=== PATIENT | male | born 1985 | race Caucasian/White ===

== ENCOUNTER 2017-01-03 19:43 | Emergency (ER) | payer MEDICAID ==
[2017-01-03 20:00] VITALS: O2SAT 95
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
[2017-01-03] MEDS ORDERED: NS 1,000 ML IV ONE (20:03)
[2017-01-03 20:15] LABS: % IMMATURE GRANULYOCYTES 0.4 % (0.0-1.1); ABSOLUTE IMMATURE GRANULOCYTES 0.03 10^3/uL (0.00-0.10); ADD DIFF? NO; ADD MORPH? NO; ADD SCAN? NO; ATYPICAL LYMPHOCYTE FLAG 50 (0-99); FRAGMENT RBC FLAG 0 (0-99); HEMATOCRIT 43.6 % (40.0-51.0); HEMOGLOBIN 14.7 g/dL (13.7-17.5); LEFT SHIFT FLG 0 (0-99); LIPEMIA HEMOLYSIS FLAG 80 (0-99); MEAN CELL HEMOGLOBIN 33.1 pg (27.9-34.1); MEAN CELL HEMOGLOBIN CONCENTR. 33.7 g/dL (32.4-36.7); MEAN CELL VOLUME 98.2 fL (81.5-99.8); MEAN PLATELET VOLUME 9.3 fL (8.7-11.7); PLATELET CLUMPS FLAG 40 (0-99); PLATELET COUNT 284 10^3/uL (150-400); RED BLOOD CELL COUNT 4.44 10^6/uL (4.40-6.38); RED CELL DISTRIBUTION WIDTH 13.3 % (11.5-15.2)
--- NOTE | 2017-01-03 20:30 | CT ---
Noncontrast Head CT Indication: Seizures.. Technique: Standard noncontrast axial CT images of the head were performed. Dose reduction techniq ues were utilized. Comparison Study: December 16, 2012. Findings: No intracranial hemorrhage, mass effect, swelling, or extraaxial fluid collection. The ve ntricles are normal caliber and midline. The bones appear unremarkable. The paranasal sinuses are clear. Impression: Normal noncontrast CT of the brain. Results called to Dr. Patterson at the time of the interpretation.
[2017-01-03 20:38] LABS: ALANINE AMINOTRANSFERASE 53 IU/L (21-72); ALBUMIN 4.3 g/dL (3.5-5.0); ALKALINE PHOSPHATASE 145 IU/L (38-126); ANION GAP 18 mEq/L (8-16); ASPARTATE AMINOTRANSFERASE 86 IU/L (17-59); BILIRUBIN,TOTAL 0.5 mg/dL (0.1-1.4); BILIRUBIN-CONJUGATED 0.5 mg/dL (0.0-0.5); CARBON DIOXIDE 18 mEq/l (22-31); CHLORIDE 109 mEq/L (97-110); CREATININE 0.7 mg/dL (0.7-1.3); GLOMERULAR FILTRATION RATE > 60; GLUCOSE 89 mg/dL (70-100); POTASSIUM 4.6 mEq/L (3.5-5.2); SODIUM 145 mEq/L (134-144); TOTAL PROTEIN 8.1 g/dL (6.3-8.2)
[2017-01-03 20:45] LABS: ETHANOL SERUM 299 mg/dL (0-10)
--- NOTE | 2017-01-03 20:53 | DX ---
PA and lateral chest. 01/03/2017. Clinical History: Mental status change. Comparison Study: November 02, 2012.. Findings: The lungs are clear. No pleural disease identified. Heart size is normal. Visualized osseous structures appear normal. Impression: Normal chest.
[2017-01-03] MEDS ORDERED: CHLORDIAZEPOXIDE 25MG PREPK#6 BTL TAKEHOME ONE (21:16)
[2017-01-03 21:23] VITALS: BP 101/62; PULSE 81; RESP 17; TEMP 98.4
== END 2017-01-03 22:06 | disposition home or self-care (01) ==
LOC: EDUNIT# → EDBD
DX: R56.9 Unspecified convulsions (principal); F10.10 Alcohol abuse, uncomplicated
CPT/HCPCS: G0480